=== PATIENT | male | born 1985 | race Caucasian/White ===

== ENCOUNTER 2025-06-17 19:32 | Emergency (ER) | payer BC, SELFPAY ==
[2025-06-17 19:33] VITALS: BMI 32.3
[2025-06-17 20:06] VITALS: BP 130/83; PULSE 106; RESP 18; TEMP 36.9; O2SAT 99
[2025-06-17] MEDS: TETRACAINE PF OP SOL 0.5% 4 ML DRPETTE 1 DROP RIGHT EYE (20:21)
[2025-06-17] MEDS: FLUORESCEIN SOD 1 MG STRP RIGHT EYE (20:26)
--- NOTE | 2025-06-17 20:35 | EDNOTE_ITS ---
ED Eye Problem RME/HPI General Chief complaint: Eye Problems Stated complaint: SOMETHING IN LEFT EYE Time Seen by Provider: 06/17/25 20:07 Arrival date/time: 06/17/25 19:32 This is a case of 40-year-old male with no medical history came in in the emergency room due to foreign body sensation on the left eye with some redness on the left eye history of present illness started yesterday when the patient was working in the yard and noted and felt something went to his eye patient immediately do a left eye irrigation still with the symptoms thus decided to sought consult here in the emergency room no eye pain no photosensitivity no blurring of vision Limitations: no limitations Related Data Previous Rx's ?Medication ?Instructions ?Recorded ofloxacin 0.3 % eye drops (Ocuflox) 1 drp ophthalmic ( eye) QID 10 days 06/17/25 #10 mL Allergies Allergy/AdvReac Type Severity Reaction Status Date / Time No Known Allergies Allergy Verified 06/17/25 19:33 Review of Systems Review of Systems Systems Reviewed: All systems reviewed, normal except as documented Constitutional Constitutional: Reports system reviewed and no additional complaints, except as documented and Reports as per HPI Eyes Eyes: Reports as per HPI Cardiovascular Cardiovascular: Reports system reviewed and no additional complaints, except as documented and Reports as per HPI Respiratory Respiratory: Reports system reviewed and no additional complaints, except as documented and Reports as per HPI Gastrointestinal Gastrointestinal: Reports system reviewed and no additional complaints, except as documented and Reports as per HPI Neurologic Neurologic: Reports system reviewed and no additional complaints, except as documented and Reports as per HPI Past Medical History Social History SMOKING STATUS: Never smoker ED Exam General Limitations: Present no limitations General appearance: Present alert, in no apparent distress and other (Patient is awake alert oriented not in distress nontoxic looking well-hydrated well- nourished) Head Head exam: Present atraumatic, normocephalic and normal inspection Eye Eye exam: Present normal appearance, PERRL, EOMI and other (PERRL EOM intact redness conjunctiva left eye exam as follows noted corneal abrasion on the 11 o'clock position no Tiffanie signs no corneal ulcer nor corneal edema both upper and lower eyelid normal no redness no swelling no discharge no foreign body noted) ENT ENT exam: Present normal exam, normal oropharynx and mucous membranes moist Neck Neck exam: Present normal inspection, full ROM and trachea midline Chest Chest inspection: Present normal inspection and symmetric chest wall rise Respiratory Respiratory exam: Present normal lung sounds bilaterally Cardiovascular Cardiovascular exam: Present regular rate, normal rhythm and normal heart sounds Abdominal Exam Abdominal exam: Present soft and normal bowel sounds Extremities Exam Extremities exam: Present normal inspection and full ROM Back Exam Back exam: Present normal inspection and full ROM Neurological Exam Neurological exam: Present alert, oriented X3, CN II-XII intact, normal gait and reflexes normal; Absent motor sensory deficit Psychiatric Psychiatric exam: Present normal affect and normal mood Skin Skin exam: Present warm, dry, intact and normal color Course Quality Measures none Orders Category Date Time Status Erythromycin Op Oint 0.5% Med 06/17/25 20:33 Discontinued 1 gm LEFT EYE X1 ONE Fluorescein Sodium [Bio-Azra] Med 06/17/25 20:21 Discontinued 1 mg RIGHT EYE X1 ONE TET,DIP/PERT AC (Adult)-Tdap [Boostrix Adult (Tdap) Med 06/17/25 20:35 Once Vacc] 0.5 ml IMI .ONCE ONE TETRACAINE Op Amada 0.5% [Pontocaine Op Amada 0.5%] Med 06/17/25 20:14 Discontinued 1 drop RIGHT EYE X1 ONE Vital Signs Vital signs: Vital Signs Temperature 98.4 F 06/17/25 20:06 Pulse Rate 106 H 06/17/25 20:06 Respiratory Rate 18 06/17/25 20:06 Blood Pressure 130/83 06/17/25 20:06 Pulse Oximetry (%) 99 06/17/25 20:06 Oxygen Delivery Method Room Air 06/17/25 20:06 Oxygen saturation is 99% in room air Eye MDM Narrative MDM Narrative:: This is a case of 40-year-old male with no medical history came in in the emergency room due to foreign body sensation on the left eye with some redness on the left eye history of present illness started yesterday when the patient was working in the yard and noted and felt something went to his eye patient immediately do a left eye irrigation still with the symptoms thus decided to sought consult here in the emergency room no eye pain no photosensitivity no blurring of vision physical examination patient is awake alert oriented not in distress nontoxic looking well-hydrated well-nourished visual acuity and peripheral acuity were done and it is normal PERRL EOM intact noted redness on the left conjunctiva patient both upper and lower extremities were normal no redness no swelling no foreign body no palpable edema no hyphema no periorbital cellulitis patient was placed on supine position tetracaine and [id number] was applied on the left eye visualize left eye with Dyer lamp and noted to have left corneal abrasion on the left 11 o'clock position no corneal edema norulcer negative Tiffanie signpatient tolerated well the procedure eye irrigation was performed to remove the stain erythromycin was applied to the left eye and covered with eye patch no eyestrain was advised patient will follow-up with PCP to be referred to usability strategist importance to see an usability strategist was explained to the patient that he still loss of eyesight was advised patient understood very well the discharge instruction worsening symptoms or any emergent concern return precaution in the ER was advised Patient was discharged with comfortable condition walking with stable gait. Patient verbalized no further complains explained diagnosis and answered patient question. Patient is comfortable with the proposed management plan including the need to follow up with his/her primary care physician and any specialist if applicable Discussed patient for any urgent condition or worsening sx, He/She needed to go to emergency room immediately or call 911. Patient acknowledge the responsibility to follow up as instructed and to monitor her/his symptoms. For any persistence of the symptoms for more than 3-5 days return precaution advised. Discussed the result of the test and was given printed discharge instruction Patient data External records reviewed:: [facility] previous records Clinical information provided by:: patient Social determinants that could affect healthcare access:: none Patient has the following chronic illnesses:: None How is presenting disease/condition affected by chronic disease/condition?: no chronic disease (None) Evaluation data The following diagnostics were reviewed and interpreted by me:: other (specify) (None) Lab and/or radiology exams considered but not ordered:: None Interpretation Summary: None Medications / Prescriptions Medications or Prescriptions considered but not ordered:: Given Medication administrations:: Medication Administration History Discontinued Medications Erythromycin (Erythromycin Op Oint 0.5% 1 Gm Packet) 1 gm LEFT EYE X1 ONE Stop: 06/17/25 20:34 Fluorescein Sodium (Fluorescein Sod 1 Mg Strp) 1 mg RIGHT EYE X1 ONE Stop: 06/17/25 20:22 Last Admin: 06/17/25 20:26 Dose: 1 mg Documented By: NIKOLAS Comments: USED BY PROVIDER Tetracaine HCl (Tetracaine Pf Op Amada 0.5% 4 Ml Drpette) 1 drop RIGHT EYE X1 ONE Stop: 06/17/25 20:15 Last Admin: 06/17/25 20:21 Dose: 1 drop Documented By: NIKOLAS Comments: USED BY PROVIDER Given Consultations Consultation(s) initiated? (list below): No Diagnosis Eye Problem Differential Diagnosis: corneal abrasion and conjunctivitis Most likely diagnosis given after review of the tests above:: Corneal abrasion Admission Indicated Admission indicated?: not indicated Explain why admission is indicated or not indicated:: Not indicated Admission Request Was there a request for admission?: No Admission Attestation Admission request attestation: Not indicated Disposition Plan Disposition Plan: Discharge Discharge Attestation Discharge Attestation: The patient and all family members were given an opportunity to ask questions and understood the discharge instructions. Discharge instructions specifically effects, indications for sooner follow up or return to the emergency department, and the expected course of current diagnosis. Patient condition: Stable Discharge Plan Plan Patient Disposition: HOME (Self Care) Patient condition on transfer: Stable Prescriptions/Referrals Prescriptions/Med Rec: New ofloxacin [Ocuflox] 0.3 % drops 1 drp ophthalmic (eye) QID 10 Days Qty: 10 0RF Problem List Clinical Impression: Corneal abrasion, left Patient/Caregiver Discharge Instructions Education Materials: ED Corneal Abrasion Additional Instructions: Follow-up with your primary care physician in 2 days for reevaluation and to be referred to usability strategist for further evaluation and treatment of left corneal abrasion it is very important to see an usability strategist in 2 days for further evaluation and treatment of left corneal abrasion for any worsening symptoms or any emergent concerns such as redness eye pain blurring vision etc. return to the emergency room immediately or call 911 apply the medication as directed no eyestrain is advised Print Language: Greek Stand Alone Forms: [employer] Award Info., Patient Portal Info Letter PA/GISELL Supervising Physician PA/GISELL Supervising Physician: Dr. Patti Pineda
[2025-06-17] MEDS: DIPHTH,PERTUSS(ACELL),TET VAC 0.5 ML SYR- ADULT IMi (21:03)
[2025-06-17] MEDS: Erythromycin Op Oint 0.5% 1 GM PACKET LEFT EYE (21:04)
== END 2025-06-17 21:34 | disposition home or self-care (01) ==
LOC: SERX 21:07
PROVIDERS: Emergency Provider Emergency Medicine
DX: S05.02XA Injury of conjunctiva and corneal abrasion without foreign body, left eye, initial encounter (principal); X58.XXXA Exposure to other specified factors, initial encounter; Y93.H2 Activity, gardening and landscaping; Y92.096 Garden or yard of other non-institutional residence as the place of occurrence of the external cause; Z23 Encounter for immunization
CPT/HCPCS: 90471; 90715; 99281; A9270